=== PATIENT | male | born 1985 | race Caucasian/White ===

== ENCOUNTER 2017-08-12 07:36 | Emergency (ER) | payer MEDICAID, OTHER ==
[~2017-08-12] VITALS: Ht 182.9 cm; Wt 79.4 kg
[2017-08-12] MEDS ORDERED: ESCI10TA PO (07:52)
--- NOTE | 2017-08-12 08:03 | NUR ---
PT IS IN ROOM #2A. DR SINGH EVALUATED THE PT.
[2017-08-12] MEDS ORDERED: predniSONE 20 MG TABLET PO ONE (08:30)
[2017-08-12] MEDS ORDERED: predniSONE 50 MG TABLET PO ONE (08:30)
--- NOTE | 2017-08-12 08:51 | NUR ---
PT WAS D/C TO HOME. D/C INSTRUCTIONS GIVEN TO THE PT.
[2017-08-12 08:52] VITALS: BP 128/72
--- NOTE | 2017-08-12 08:52 | NUR ---
Patient discharged to home in stable conditon. Written and verbal after care instructions given. Patient verbalizes understanding of instructions.pt walks in steady gait, no sign of distress. pt with family member.
[2017-08-12] MEDS ORDERED: predniSONE 50 MG TABLET ONE (08:53)
== END 2017-08-12 08:52 | disposition home or self-care (01) ==
LOC: ER 07:45
DX: J45.909 Unspecified asthma, uncomplicated (principal); J11.1 Influenza due to unidentified influenza virus with other respiratory manifestations; R07.89 Other chest pain
CPT/HCPCS: 71045; A4663; J7512